=== PATIENT | male | born 2000 | race Caucasian/White ===

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

== ENCOUNTER → 2020-05-20 | Outpatient (CLI) | payer OTHER ==
[~2020-05-20] MED LIST: INDERAL LA 60MG60 MG PO; PREDNISONE20 MG PO
== END ==
LOC: COL.RAD 07:57
DX: K51.90 Ulcerative colitis, unspecified, without complications (principal); K52.9 Noninfective gastroenteritis and colitis, unspecified
CPT/HCPCS: Q9967

== ENCOUNTER 2021-08-28 08:29 | Outpatient (CLI) | payer OTHER ==
[~2021-08-28] VITALS: Ht 193 cm; Wt 111.3 kg
[2021-08-28] MEDS ORDERED: HUMIRA PEN40 MG/0.4 SQ (08:54)
[2021-08-28] MEDS ORDERED: LIALDA 1.2 GM1.2 GM PO (09:07)
[2021-08-28 09:22] VITALS: BP 158/76; PULSE 103; TEMP 99.2
[2021-08-28 09:40] VITALS: BP 155/77; PULSE 98
[2021-08-28 10:10] VITALS: BP 122/78; PULSE 102
== END 2021-08-28 11:10 ==
LOC: EUO 08:29
DX: U07.1 COVID-19 (principal)
CPT/HCPCS: M0222; Q0222